=== PATIENT | male | born 1980 | race Caucasian/White ===

== ENCOUNTER 2023-02-13 14:12 | Emergency (ER) | payer SELFPAY ==
[2023-02-13 14:30] VITALS: BP 137/110; PULSE 80; RESP 20; TEMP 36.6; O2SAT 100; BMI 42.3
--- NOTE | 2023-02-13 15:01 | EXP.UTC ---
Discharge Plan Disposition Patient Disposition: Home, Self-Care Condition: Good Prescriptions Prescriptions: New ofloxacin 0.3 % drops See Rx Instructions .ROUTE .COMPLEX Qty: 5 0RF Rx Instructions: put 1 drops into left eye(s) every 3 h x 2 days, then 1 drops 4 times/day days 3-7 No Action Enbrel 50 mg/mL (1 mL) Syringe 50 mg SQ WEEKLY Referrals Follow up/Referrals: Abiola Ngo [Primary Care Provider] - See instructions Activity Restrictions/Add. Instructions Additional Instructions/Restrictions: contact precautions if no improvement return or be seen in ed Clinical Impressions Clinical Impression: Conjunctivitis Instructions Patient Instructions: DI for Conjunctivitis Discharge ED Provider: Anh ([facility])Zita [facility] [place] HPI General Stated complaint: LT eye redness w/drainage Mode of Arrival: Ambulatory Source of Information: Patient Limitations: No Limitations Time Seen by Provider: 02/13/23 15:01 Description of Symptoms (Recalled from Triage Doc. by RN): PATIENT C/O REDNESS AND DRAINAGE TO EYE SINCE LAST NIGHT HEENT Symptoms (Recalled from RN notes): Yes Resp Symptoms (Recalled from RN notes): No Skin Symptoms (Recalled from RN notes): No MS Symptoms (Recalled from RN notes): No Functional Status (Recalled from RN notes): WNL History of Present Illness Provider Complaint: 42 yr old male presents for redness and drainage to left eye Related Data Home Medications Medication Instructions Recorded Confirmed etanercept 50 mg/mL (1 mL) 50 mg SQ WEEKLY Arthritis 02/13/23 02/13/23 subcutaneous syringe (Enbrel) Previous Rx's Medication Instructions Recorded ofloxacin 0.3 % eye drops See Rx Instructions ophthalmic 02/13/23 (eye) .COMPLEX #5 mL Allergies Allergy/AdvReac Type Severity Reaction Status Date / Time Penicillins Allergy Verified 02/13/23 14:58 Worker's Comp Is this a Worker's Comp case?: No [facility] Disclaimer: The information contained in this section may have been updated after the patient was seen, as this information can be updated by other users. Social History , [employer]) Smoking Status: Unknown if ever smoked alcohol intake: never current occupational status: employed Travel in the last 8 weeks: None ROS Obtained: Yes All systems reviewed & no additional complaints except as documented Constitutional Constitutional: Reports system reviewed and no additional complaints, except as documented and Reports as per HPI Eyes Eyes: Reports system reviewed and no additional complaints, except as documented, Reports as per HPI, Reports eye discharge and Reports irritation ENT Ears, Nose, Mouth, and Throat: Reports system reviewed and no additional complaints, except as documented and Reports as per HPI Cardiovascular Cardiovascular: Reports system reviewed and no additional complaints, except as documented Respiratory Respiratory: Reports system reviewed and no additional complaints, except as documented Gastrointestinal Gastrointestingal: Reports system reviewed and no additional complaints, except as documented Musculoskeletal Musculoskeletal: Reports system reviewed and no additional complaints, except as documented Integumentary/Breasts Skin/Breast: Reports system reviewed and no additional complaints, except as documented Neurologic Neurologic: Reports system reviewed and no additional complaints, except as documented Endocrine Endocrine: Reports system reviewed and no additional complaints, except as documented Hematologic/Lymphatic Henatologic/Lymphatic: Reports system reviewed and no additional complaints, except as documented Allergic/Immunologic Allergic/Immunologic: Reports system reviewed and no additional complaints, except as documented Physical Exam General General appearance: alert and in no apparent distress Head Head exam: atraumatic Eye Eye exam: Present PERRL, conjun
[2023-02-13 15:11] VITALS: BP 137/110; PULSE 80; RESP 20; TEMP 36.6; O2SAT 100
== END 2023-02-13 15:15 | disposition home or self-care (01) ==
PROVIDERS: Emergency Provider Nurse Practitioner Family; PCP Family Medicine
DX: H10.32 Unspecified acute conjunctivitis, left eye (principal)
CPT/HCPCS: 99212; 99214; G0463